=== PATIENT | female | born 1980 | race African-American/Black ===

== ENCOUNTER 2019-03-21 19:31 | Emergency (ER) | payer OTHER ==
[~2019-03-21] VITALS: Ht 160 cm; Wt 88.5 kg
[2019-03-21] MEDS ORDERED: NORCO 5-325 TA1 EAC1 PO (20:18)
[2019-03-21] MEDS ORDERED: MEDROL4 M1 PO (20:18)
[2019-03-21] MEDS ORDERED: HYDROXYCHLOROQ200 M1 PO (20:19)
[2019-03-21 21:00] VITALS: BP 133/88
== END 2019-03-21 21:10 | disposition home or self-care (01) ==
LOC: ER 19:31
DX: M32.9 Systemic lupus erythematosus, unspecified (principal); M25.50 Pain in unspecified joint; M79.10 Myalgia, unspecified site; Z91.013 Allergy to seafood